=== PATIENT | male | born 2000 | race Hispanic/Latino ===

== ENCOUNTER 2025-06-18 11:50 | Emergency (ER) | payer BC ==
[~2025-06-18] VITALS: Ht 167.6 cm; Wt 81.6 kg
--- NOTE | 2025-06-18 12:00 | ERN ---
ED Note History of Present Illness Stated Complaint: N/V/D, GENERALIZED [place]ING[place] Chief Complaint: Nausea,Vomiting,Diarrhea Time Seen by MD: 11:57 Dictation: PATIENT IS A 24-YEAR-OLD MALE COMING IN TODAY WITH COMPLAINTS OF NAUSEA VOMITING AND GENERALIZED BODY TINGLING ONSET WAS 0 100 THIS MORNING. HE HAS HAD NO FEVER NO CHILLS NO DIARRHEA. HE DENIES ANY ABDOMINAL PAIN AT THIS TIME. STATES HE THOUGHT HE WAS GETTING SICK YESTERDAY AND THEN IT HIT HIM AT 01:00 IN THE MORNING. NO PRIMARY CARE DOCTOR HE HAS NOT TAKEN ANYTHING PRIOR TO ARRIVAL FOR THE VOMITING. STATES HE DOES SMOKE MARIJUANA. Allergies: Coded Allergies: Penicillins (Unverified Allergy, Unknown, 06/18/25) Past Medical History Past Medical History: Asthma Surgical History: None Social History: Drugs RN Note Reviewed/Agreed w/PFSH: Yes Review of System Dictation CONSTITUTIONAL: NEGATIVE EXCEPT FOR HPI HEAD/FACE: NEGATIVE EXCEPT FOR HPI EENT: NEGATIVE EXCEPT FOR HPI RESPIRATORY: NEGATIVE EXCEPT FOR HPI GASTROINTESTINAL/ABDOMINAL: NEGATIVE EXCEPT FOR HPI NAUSEA VOMITING GENITOURINARY: NEGATIVE EXCEPT FOR HPI MUSCULOSKELETAL: NEGATIVE EXCEPT FOR HPI INTEGUMENTARY: NEGATIVE EXCEPT FOR HPI NEUROLOGICAL/PSYCH: NEGATIVE EXCEPT FOR HPI [place] HEMATOLOGIC/LYMPHATIC: NEGATIVE EXCEPT FOR HPI ALL SYSTEMS NEGATIVE, EXCEPT NOTED ABOVE. 13 POINT REVIEW OF SYSTEMS ASSESSED AND ALL NEGATIVE EXCEPT FOR ABOVE. Initial Vital Sign VS Vital Signs Date Time Temp Pulse Resp B/P (MAP) Pulse Ox O2 Delivery O2 Flow Rate FiO2 06/18/25 11:54 98.2 97 16 189/63 100 Room Air 0 06/18/25 13:21 21 Physical Exam Dictation VITAL SIGNS REVIEWED GENERAL APPEARANCE: ALERT, ORIENTED X 3, NO ACUTE DISTRESS, WELL DEVELOPED, NOU RISHED. HEAD AND FACE: NON-TRAUMATIC. EYES: PERRL, PINK CONJUNCTIVAS, EYELID NO TRAUMA, ANTERIOR CHAMBER WITH ARCUS SENILIS. EARS: PINNAS INTACT AND NO SIGNS OF TRAUMA OR ERYTHEMA EAR CANALS CLEAR AND NO DISCHARGE TM NO ERYTHEMA NOSE: NO DISCHARGE, NO BLEEDING. OROPHARYNX: MOUTH NORMAL, TONGUE PINK, PHARYNX CLEAR,NO ERYTHEMA, TONSILS NO EXUDATES, NO ABSCESSES NOTED, MUCOUS ME MBRANE MOIST NECK: SUPPLE, NON-TENDER, NO THYROMEGALY, NO MASSES, NO JVD, NO BRUITS BREAST:DEFERRED CHEST:NO TENDERNESS, NO CREPITUS, NO PARADOXICAL MOVEMENT, NO RETRACTIONS LUNGS:CLEAR, WELL-VENTILATED, SYMMETRIC, NO RALES, NO WHEEZING, NO RHONCHI, NO STRIDOR, GOOD BREATH SOUNDS BILATERALLY HEART: REGULAR RATE, REGULAR RHYTHM, NO MURMUR, NO GALLOPS VASCULAR: NO PERIPHERAL EDEMA, ABDOMEN: SOFT, POSITIVE BOWEL SOUNDS, NONDISTENDED, NO GUARDING, NONTENDER, NO REBOUND, NO MASSES NO HEPATOMEGALY, NO SPLENOMEGALY, NO HALL'S SIGN, NO HERNIAS. NO FOCAL PAIN RECTAL: DEFERRED GENITAL: DEFERRED NEUROLOGICAL: NORMAL SPEECH, MOTOR FUNCTION INTACT, SENSORY FUNCTION INTACT MUSCULOSKELETAL: NECK NONTENDER, FULL RANGE OF MOTION, BACK NONTENDER, FULL RANGE OF MOTION, EXTREMITIES: NONTENDER, FULL RANGE OF MOTION SKIN: COLOR PINK, DRY, NO TURGOR, NO RASH, NO LACERATIONS, NO ABRASIONS, NO CONTUSIONS. LYMPHATIC: DEFERRED Results (Laboratory/Radiology) Laboratory/Radiology Laboratory Tests Test 06/18/25 12:48 06/18/25 13:25 White Blood Count 14.9 K/uL (4.8-10.8) H Red Blood Count 5.19 MIL/uL (4.50-6.20) Hemoglobin 15.5 g/dL (14.0-18.0) Hematocrit 44.0 % (42-54) Mean Corpuscular Volume 84.8 fL (79-99) Mean Corpuscular Hemoglobin 29.9 pg (27.0-33.0) Mean Corpuscular Hemoglobin Concent 35.2 g/dL (32.0-36.0) Red Cell Distribution Width 11.7 % (11.0-15.5) Platelet Count 338 K/uL (130-400) Mean Platelet Volume 10.2 fL (7.5-10.5) Immature Granulocyte % (Auto) 0.4 % (0-1) Neutrophils (%) (Auto) 91.1 % (40.0-77.0) H Lymphocytes (%) (Auto) 4.7 % (21.0-51.0) L Monocytes (%) (Auto) 3.7 % (3.0-13.0) Eosinophils (%) (Auto) 0.0 % (0.0-8.0) Basophils (%) (Auto) 0.1 % (0.0-5.0) Neutrophils # (Auto) 13.5 K/uL (1.8-7.7) H Lymphocytes # (Auto) 0.7 K/uL (1.0-4.8) L Monocytes # (Auto) 0.6 K/uL (0.1-1.0) Eosinophils # (Auto) 0.00 K/uL (0.00-0.70) Basophils # (Auto) 0.02 K/uL (0.00-0.20) Absolute Immature Granulocyte (auto 0.06 K/uL (0-1) Nucleated Red Blood Cells 0.0 % (0.0-0.19) White Cell Morphology Comment See comments Sodium Level 137 mmol/L (136-145) Potassium Level 3.2 mmol/L (3.5-5.1) L Chloride Level 100 mmol/L (101-111) L Carbon Dioxide Level 28 mmol/L (21-32) Blood Urea Nitrogen 9 mg/dL (7-18) Creatinine 1.0 mg/dL (0.5-1.3) Glomerular Filtration Rate Calc 106 mL/min (>90) Random Glucose 132 mg/dL (70-105) H Total Calcium 9.7 mg/dL (8.5-10.1) Lipase 20 U/L (16-77) Urine Color YELLOW (YELLOW) Urine Appearance CLEAR (CLEAR) Urine pH 6.5 (5.0-8.0) Urine Specific [place] 1.037 (1.001-1.031) Urine Protein 50 mg/dL (NEGATIVE) H Urine Glucose (UA) 70 mg/dL (NEGATIVE) H Urine Ketones 150 mg/dL (NEGATIVE) H Urine Occult Blood NEGATIVE (NEGATIVE) Urine Nitrate NEGATIVE (NEGATIVE) Urine Bilirubin NEGATIVE mg/dL (NEGATIVE) Urine Urobilinogen 0.2 mg/dL (0.2-1.0) Urine Leukocyte Esterase NEGATIVE Ivania/uL Urine RBC 2-5 /HPF (0-1) H Urine WBC 2-5 /HPF (0-1) H Urine Squamous Epithelial Cells RARE /HPF (0-2) Urine Bacteria RARE /HPF (None Seen) Urine Opiates Screen NEGATIVE (NEGATIVE) Urine Barbiturates Screen NEGATIVE (NEGATIVE) Urine Phencyclidine Screen NEGATIVE (NEGATIVE) Urine Amphetamines Screen NEGATIVE (NEGATIVE) Urine Benzodiazepines Screen NEGATIVE (NEGATIVE) Urine Cocaine Screen NEGATIVE (NEGATIVE) Urine Marijuana (THC) Screen POSITIVE (NEGATIVE) H Labs Reviewed?: Yes ED Course ED Course Orders Procedure Category Date Status Time Drug Screen Urine LAB 06/18/25 Complete 11:58 Cbc With Differential LAB 06/18/25 Complete 11:58 Urinalysis Profile LAB 06/18/25 Complete 11:58 0.9%Nacl 1000ml (Ns PHA 06/18/25 Complete 1000ml) 12:00 Ondansetron 4mg Inj PHA 06/18/25 Complete (Zofran 4mg Inj) 12:00 Famotidine 20mg Vial PHA 06/18/25 Complete (Pepcid 20mg Vial) 12:00 Lipase LAB 06/18/25 Complete 11:58 Basic Metabolic Panel LAB 06/18/25 Complete 11:58 Current Medications Medications (Trade) Dose Ordered Sig/Gia Route PRN Reason Start Time Stop Time Status Last Admin Dose Admin Famotidine (Pepcid 20mg Vial) 20 mg ONCE ONCE IV 06/18/25 12:00 06/18/25 12:01 DC 06/18/25 13:37 Ondansetron HCl (zoFRAN 4MG INJ) 4 mg ONCE ONCE IVP 06/18/25 12:00 06/18/25 12:01 DC 06/18/25 13:36 Sodium Chloride 1,000 ml @ 0 mls/hr ONCE ONCE IV 06/18/25 12:00 06/18/25 12:01 DC 06/18/25 13:36 Vital Signs Date Time Temp Pulse Resp B/P (MAP) Pulse Ox O2 Delivery O2 Flow Rate FiO2 06/18/25 13:21 98.2 82 18 162/60 100 Room Air* 0 21 06/18/25 11:54 98.2 97 16 189/63 100 Room Air 0 1320/PATIENT STATES HE FEELS MARKEDLY IMPROVED AFTER TREATMENT WITH FLUIDS AND ZOFRAN. STATES HIS LAST CANNABIS INTAKE WAS TWO DAYS AGO. HE STATES WAS IN THE SHOWER YESTERDAY FOR HOURS TIME TO STOP VOMITING. I STRONGLY ADVISED HIM TO STOP CANNABIS Medical Decision Making MDM MDM: DIFFERENTIAL DIAGNOSIS: NAUSEA VOMITING/GASTROENTERITIS/CANNABIS ABUSE SYNDROME/POLYDRUG ABUSE/ELECTROLYTE IMBALANCE/DEHYDRATION RATIONALE: TESTS CONSIDERED AND ORDERED SECONDARY TO SHARED DECISION MAKING INCLUDE: LABS PREVIOUS OUTSIDE RECORDS REVIEWED: OLD ER VISITS. RISK OF COMPLICATION AND/OR MORBIDITY OR MORTALITY OF PATIENT MANAGEMENT: NONE MEDICATIONS-PER MEDICATION RECONCILIATION NEED FOR HOSPITALIZATION: PATIENT DOES NOT MEET CRITERIA FOR HOSPITALIZATION. NONE NEED FOR EMERGENCY MAJOR/MINOR SURGERY: NO THERE ARE NO SOCIAL CONCERNS WITH THIS PATIENT. CANNABIS ABUSE PRESCRIPTION DRUG MANAGEMENT ZOFRAN/K-DUR PRESCRIPTIONS WILL INCLUDE SYMPTOMATIC CARE PATIENT'S PRIOR EXTERNAL MEDICAL RECORDS FROM OTHER ER VISITS WERE REVIEWED BY ME INDICATED. PRIOR TESTING AND RESULTS FROM PREVIOUS VISITS WERE REVIEWED. PRIOR TESTS WERE TAKEN INTO ACCOUNT WITH MEDICAL DECISION MAKING AND RESOURCE UTILIZATION, INDEPENDENT HISTORIAN/HISTORIANS WERE USED TO OBTAIN COMPLETE MEDICAL HISTORY. I INDEPENDENTLY INTERPRETED THE TEST THAT WERE PERFORMED, RESULTS WERE REVIEWED BY ME AND CONSIDERED FINDINGS ON RADIOLOGY IF ORDERED. MEDICAL MANAGEMENT AND EXAMINATION INTERPRETATION DISCUSSIONS WERE HAD BY ME WITH OTHER QUALIFIED HEALTHCARE PROFESSIONALS INDICATED FOR THE PATIENT'S CARE. DX & DISP Disposition: Discharge Departure Impression: Primary Impression: Cannabis hyperemesis syndrome concurrent with and due to cannabis abuse Additional Impressions: Hypokalemia, Dehydration Condition: Stable Scripts Potassium Chloride (Potassium Chloride) 20 Meq Tab.er.prt 1 TAB PO DAILY for 5 Days, #5 TAB 0 Refills Prov: LAURYN WADE CAD DETAILER 06/18/25 Ondansetron (Ondansetron Odt) 4 Mg Tab.rapdis 4 MG PO Q6HPRN PRN for nausea, #16 TAB 0 Refills Prov: LAURYN WADE CAD DETAILER 06/18/25 Additional Instructions: FOLLOW-UP WITH PRIMARY CARE PROVIDER IN 1 TO 2 DAYS. TAKE MEDICATIONS DIRECT ED HERE IN THE EMERGENCY ROOM. OKAY TO CONTINUE HOME MEDICATIONS UNLESS OTHERWISE DISCUSSED DURING YOUR VISIT IN THE EMERGENCY ROOM TODAY. RETURN TO YOUR NEAREST EMERGENCY ROOM IF SYMPTOMS WORSEN OR IF THERE IS NO IMPROVEMENT. CALL 911 IF YOU NEED IMMEDIATE ASSISTANCE. TAKE TYLENOL OR MOTRIN [id number] NEEDED AND IF NO CONTRAINDICATIONS ARE PRESENT. INCREASE ORAL HYDRATION. A WOUND CULTURE OR URINE CULTURE WAS ORDERED HERE IN THE EMERGENCY ROOM DEPARTMENT PLEASE FOLLOW-UP WITH PRIMARY CARE PROVIDER AND ADVISE THEM TO GET REPEAT PORTS FROM OUR FACILITY. IF YOU HAD ANY GURJIT WRAP/SPLINTS THAT WERE APPLIED HERE, PLEASE DO NOT REMOVE THEM UNTIL YOU SEE YOUR PRIMARY CARE OR SPECIALTY. STOP MARIJUANA USE. TAKE HOT SHOWERS WHEN YOU START VOMITING. TAKE POTASSIUM REPLACEMENT DIRECTED DAILY UNTIL GONE. FOLLOW UP WITH ONE OF THE DOCTORS ON THE LIST PROVIDED YOU NEEDED. Referrals: CONNIE MARIN (PCP) Time of Disposition: 14:23 I have reviewed the case, and I agree with, Diagnosis and Plan LAURYN WADE CAD DETAILER Jun 18, 2025 12:00
[2025-06-18 13:14] LABS: IMMATURE GRANULOCYTE ABSOLUTE 0.06 K/uL (0-1); NUCLEATED RED BLOOD CELLS 0.0 % (0.0-0.19); PLATELET COUNT (AUTO) 338 K/uL (130-400); RED BLOOD CELL COUNT(AUTO) 5.19 MIL/uL (4.50-6.20); RED CELL DISTRIBUTION WIDTH 11.7 % (11.0-15.5); WHITE BLOOD COUNT (AUTO) 14.9 K/uL (4.8-10.8)
[2025-06-18 13:19] LABS: CREATININE 1.0 mg/dL (0.5-1.3); GLOMERULAR FILTR. RATE CALC 106.0 mL/min (>90); GLUCOSE,RANDOM 132.0 mg/dL (70-105); SODIUM SERUM 137.0 mmol/L (136-145); UREA NITROGEN, BLOOD 9.0 mg/dL (7-18)
[2025-06-18] MEDS: 0.9%NACL 1000ML 1,000 ML IV ONE (13:36)
[2025-06-18] MEDS: FAMOTIDINE 20MG VIAL IV ONE (13:37)
[2025-06-18 13:38] LABS: APPEARANCE,URINE CLEAR (CLEAR); GLUCOSE, URINE (UA) 70 mg/dL (NEGATIVE); LEUKOCYTE ESTERASE ,URINE NEGATIVE Leu/uL (NEGATIVE); NITRATE,URINE NEGATIVE (NEGATIVE); OCCULT BLOOD,URINE NEGATIVE (NEGATIVE)
[2025-06-18 13:43] LABS: ADD UA MICROSCOPIC YES
[2025-06-18 13:44] LABS: AMPHET/METH SCREEN,URINE NEGATIVE (NEGATIVE); BARBITURATE SCREEN, URINE NEGATIVE (NEGATIVE); CANNABINOID SCREEN,URINE POSITIVE (NEGATIVE); COCAINE SCREEN,URINE NEGATIVE (NEGATIVE)
[2025-06-18 13:50] LABS: SQUAMOUS EPITHELIAL CELL,UR RARE /HPF (0-2)
[2025-06-18] MEDS ORDERED: ONDA-243 PO (14:26)
[2025-06-18] MEDS ORDERED: POTA-202 PO (14:26)
[2025-06-18 14:43] VITALS: BP 162/60; PULSE 82; RESP 18; TEMP 98.2; O2SAT 100
[2025-06-19] MEDS ORDERED: OMEP40CA21 PO (17:54)
== END 2025-06-18 14:44 | disposition home or self-care (01) ==
LOC: EDH 11:50
DX: F12.10 Cannabis abuse, uncomplicated (principal); E87.6 Hypokalemia; E86.0 Dehydration; R11.10 Vomiting, unspecified; J45.909 Unspecified asthma, uncomplicated; Z88.0 Allergy status to penicillin
CPT/HCPCS: 99284; 96374; 96375; 80048; 80305; 83690; 85025; 81001; 36415; J3490; J7030; J2405

== ENCOUNTER 2025-06-19 14:10 | Emergency (ER) | payer BC ==
[~2025-06-19] VITALS: Ht 167.6 cm; Wt 81.6 kg
[~2025-06-19 14:10] MED LIST: ONDA-243 PO; POTA-202 PO
--- NOTE | 2025-06-19 14:23 | ERN ---
ED Note History of Present Illness Stated Complaint: NAUSEA AND VOMITING Chief Complaint: Nausea,Vomiting,Diarrhea Time Seen by MD: 14:14 Dictation: PATIENT IS A 24-YEAR-OLD MALE COMING IN TODAY WITH INTERMITTENT EPIGASTRIC PAIN WITH NAUSEA VOMITING ONSET TWO DAYS AGO. NO FEVER NO CHILLS NO CHEST PAIN NO BACK PAIN. HE WAS HERE LAST NIGHT AT [facility] FOR THE SAME COMPLAINT WAS DIAGNOSED WITH CANNABIS ABUSE SYNDROME. VOMITING WAS STOPPED AFTER FLUIDS AND ZOFRAN. STATES HE GOT OUT AND TRIED TO EAT A SANDWICH AND 8 ML STARTED VOMITING IN. HE STATES HE TOOK HIS ONDANSETRON AFTER BEGINNING THE PRESCRIPTION FILLED YESTERDAY AND THEN THIS MORNING FELT GOOD, SO HE ATE RAMEN NOODLES AND THEN STARTED Allergies: Coded Allergies: Penicillins (Unverified Allergy, Unknown, 06/18/25) Home Meds Active Scripts Potassium Chloride (Potassium Chloride) 20 Meq Tab.er.prt, 1 TAB PO DAILY for 5 Days, #5 TAB 0 Refills Prov:LAURYN WADE USABILITY STRATEGIST 06/18/25 Ondansetron (Ondansetron Odt) 4 Mg Tab.rapdis, 4 MG PO Q6HPRN PRN for nausea, #16 TAB 0 Refills Prov:LAURYN WADE USABILITY STRATEGIST 06/18/25 Past Medical History Past Medical History: Asthma Surgical History: None Social History: Drugs RN Note Reviewed/Agreed w/PFSH: Yes Review of System Dictation CONSTITUTIONAL: NEGATIVE EXCEPT FOR HPI HEAD/FACE: NEGATIVE EXCEPT FOR HPI EENT: NEGATIVE EXCEPT FOR HPI RESPIRATORY: NEGATIVE EXCEPT FOR HPI GASTROINTESTINAL/ABDOMINAL: NEGATIVE EXCEPT FOR HPI NAUSEA VOMITING/EPIGASTRIC PAIN GENITOURINARY: NEGATIVE EXCEPT FOR HPI MUSCULOSKELETAL: NEGATIVE EXCEPT FOR HPI INTEGUMENTARY: NEGATIVE EXCEPT FOR HPI NEUROLOGICAL/PSYCH: NEGATIVE EXCEPT FOR HPI HEMATOLOGIC/LYMPHATIC: NEGATIVE EXCEPT FOR HPI ALL SYSTEMS NEGATIVE, EXCEPT NOTED ABOVE. 13 POINT REVIEW OF SYSTEMS ASSESSED AND ALL NEGATIVE EXCEPT FOR ABOVE. Initial Vital Sign VS Vital Signs Date Time Temp Pulse Resp B/P (MAP) Pulse Ox O2 Delivery O2 Flow Rate FiO2 06/19/25 14:11 98.2 84 18 138/70 96 Room Air 06/19/25 16:17 0 21 Physical Exam Dictation VITAL SIGNS REVIEWED GENERAL APPEARANCE: ALERT, ORIENTED X 3, MODERATE ACUTE DISTRESS, WELL DEVELOPED, NOURISHED. HEAD AND FACE: NON-TRAUMATIC. EYES: PERRL, PINK CONJUNCTIVAS, EYELID NO TRAUMA, ANTERIOR CHAMBER WITH ARCUS SENILIS. EARS: PINNAS INTACT AND NO SIGNS OF TRAUMA OR ERYTHEMA EAR CANALS CLEAR AND NO DISCHARGE TM NO ERYTHEMA NOSE: NO DISCHARGE, NO BLEEDING. OROPHARYNX: MOUTH NORMAL, TONGUE PINK, PHARYNX CLEAR,NO ERYTHEMA, TONSILS NO EXUDATES, NO ABSCESSES NOTED, MUCOUS MEMBRANE MOIST NECK: SUPPLE, NON-TENDER, NO THYROMEGALY, NO MASSES, NO JVD, NO BRUITS BREAST:DEFERRED CHEST:NO TENDERNESS, NO CREPITUS, NO PARADOXICAL MOVEMENT, NO RETRACTIONS LUNGS:CLEAR, WELL-VENTILATED, SYMMETRIC, NO RALES, NO WHEEZING, NO RHONCHI, NO STRIDOR, GOOD BREATH SOUNDS BILATERALLY HEART: REGULAR RATE, REGULAR RHYTHM, NO MURMUR, NO GALLOPS VASCULAR: NO PERIPHERAL EDEMA, ABDOMEN: SOFT, POSITIVE BOWEL SOUNDS, NONDISTENDED, NO GUARDING, MODERATE EPIGASTRIC TENDERNESS, NO REBOUND, NO MASSES NO HEPATOMEGALY, NO SPL ENOMEGALY, NO HALL'S SIGN, NO HERNIAS. RECTAL: DEFERRED GENITAL: DEFERRED NEUROLOGICAL: NORMAL SPEECH, MOTOR FUNCTION INTACT, SENSORY FUNCTION INTACT MUSCULOSKELETAL: NECK NONTENDER, FULL RANGE OF MOTION, BACK NONTENDER, FULL RANGE OF MOTION, EXTREMITIES: NONTENDER, FULL RANGE OF MOTION SKIN: COLOR PINK, DRY, NO TURGOR, NO RASH, NO LACERATIONS, NO ABRASIONS, NO CONTUSIONS. LYMPHATIC: DEFERRED Results (Laboratory/Radiology) Laboratory/Radiology Laboratory Tests Test 06/19/25 14:28 06/19/25 16:30 White Blood Count 13.5 K/uL (4.8-10.8) H Red Blood Count 5.09 MIL/uL (4.50-6.20) Hemoglobin 15.2 g/dL (14.0-18.0) Hematocrit 43.7 % (42-54) Mean Corpuscular Volume 85.9 fL (79-99) Mean Corpuscular Hemoglobin 29.9 pg (27.0-33.0) Mean Corpuscular Hemoglobin Concent 34.8 g/dL (32.0-36.0) Red Cell Distribution Width 11.7 % (11.0-15.5) Platelet Count 337 K/uL (130-400) Mean Platelet Volume 9.7 fL (7.5-10.5) Immature Granulocyte % (Auto) 0.3 % (0-1) Neutrophils (%) (Auto) 77.5 % (40.0-77.0) H Lymphocytes (%) (Auto) 15.2 % (21.0-51.0) L Monocytes (%) (Auto) 6.5 % (3.0-13.0) Eosinophils (%) (Auto) 0.2 % (0.0-8.0) Basophils (%) (Auto) 0.3 % (0.0-5.0) Neutrophils # (Auto) 10.4 K/uL (1.8-7.7) H Lymphocytes # (Auto) 2.0 K/uL (1.0-4.8) Monocytes # (Auto) 0.9 K/uL (0.1-1.0) Eosinophils # (Auto) 0.03 K/uL (0.00-0.70) Basophils # (Auto) 0.04 K/uL (0.00-0.20) Absolute Immature Granulocyte (auto 0.04 K/uL (0-1) Nucleated Red Blood Cells 0.0 % (0.0-0.19) Sodium Level 140 mmol/L (136-145) Potassium Level 3.1 mmol/L (3.5-5.1) L Chloride Level 104 mmol/L (101-111) Carbon Dioxide Level 24 mmol/L (21-32) Blood Urea Nitrogen 8 mg/dL (7-18) Creatinine 1.0 mg/dL (0.5-1.3) Glomerular Filtration Rate Calc 106 mL/min (>90) Random Glucose 118 mg/dL (70-105) H Total Calcium 9.3 mg/dL (8.5-10.1) Total Bilirubin 0.9 mg/dL (0.2-1.0) Aspartate Amino Transf (AST/SGOT) 30 U/L (10-37) Alanine Aminotransferase (ALT/SGPT) 39 U/L (12-78) Alkaline Phosphatase 84 U/L (50-136) Troponin I High Sensitivity 7 ng/L (4-75) Total Protein 7.3 g/dL (6.0-8.3) Albumin 4.2 g/dL (3.5-5.0) Lipase 25 U/L (16-77) Urine Color YELLOW (YELLOW) Urine Appearance CLOUDY (CLEAR) H Urine pH 6.5 (5.0-8.0) Urine Specific [place] 1.034 (1.001-1.031) Urine Protein 50 mg/dL (NEGATIVE) H Urine Glucose (UA) NEGATIVE mg/dL (NEGATIVE) Urine Ketones 100 mg/dL (NEGATIVE) H Urine Occult Blood NEGATIVE (NEGATIVE) Urine Nitrate NEGATIVE (NEGATIVE) Urine Bilirubin NEGATIVE mg/dL (NEGATIVE) Urine Urobilinogen 0.2 mg/dL (0.2-1.0) Urine Leukocyte Esterase NEGATIVE Ivania/uL Urine RBC 2-5 /HPF (0-1) H Urine WBC 6-10 /HPF (0-1) H Urine Squamous Epithelial Cells RARE /HPF (0-2) Urine Bacteria None /HPF (None Seen) Urine Yeast RARE /HPF (None Seen) Labs Reviewed?: Yes EKG Comment: EKG SINUS RHYTHM/HEART RATE 74/AXIS NORMAL/EARLY REPOLARIZATION SEEN IN V2 345 ED Course ED Course Orders Procedure Category Date Status Time Cbc With Differential LAB 06/19/25 Complete 14:19 Comprehensive LAB 06/19/25 Complete Metabolic Panel 14:19 Troponin I High LAB 06/19/25 Complete Sensitivity 14:19 Urinalysis Profile LAB 06/19/25 Complete 14:19 12 Lead Ekg Tracing- EKG 06/19/25 Complete Technical 14:19 0.9%Nacl 1000ml (Ns PHA 06/19/25 Complete 1000ml) 14:30 Ondansetron 4mg Inj PHA 06/19/25 Complete (Zofran 4mg Inj) 14:30 Famotidine 20mg Vial PHA 06/19/25 Complete (Pepcid 20mg Vial) 14:30 Lipase LAB 06/19/25 Complete 14:19 Potassium Bicarb/Cit PHA 06/19/25 Complete Ac 25meq (K-Lyte Ta 15:00 Culture Urine IZZY 06/19/25 In Process 16:50 Metoclopramide 10 PHA 06/19/25 Complete Mg/2 Ml Vial (Reglan 1 17:30 Current Medications Medications (Trade) Dose Ordered Sig/Gia Route PRN Reason Start Time Stop Time Status Last Admin Dose Admin Famotidine (Pepcid 20mg Vial) 20 mg ONCE ONCE IV 06/19/25 14:30 06/19/25 14:31 DC 06/19/25 16:51 Metoclopramide HCl (regLAN 10MG IV) 10 mg ONCE ONCE IVP 06/19/25 17:30 06/19/25 17:31 DC 06/19/25 17:23 Ondansetron HCl (zoFRAN 4MG INJ) 4 mg ONCE ONCE IVP 06/19/25 14:30 06/19/25 14:31 DC 06/19/25 16:51 Potassium Bicarbonate (K-Lyte Tablet Eff 25 Meq Tablet.eff) 25 meq ONCE ONCE PO 06/19/25 15:00 06/19/25 15:01 DC 06/19/25 16:50 Sodium Chloride 1,000 ml @ 0 mls/hr ONCE ONCE IV 06/19/25 14:30 06/19/25 14:31 DC 06/19/25 16:50 Vital Signs Date Time Temp Pulse Resp B/P (MAP) Pulse Ox O2 Delivery O2 Flow Rate FiO2 06/19/25 16:17 98.2 84 18 138/70 96 Room Air* 0 21 06/19/25 14:11 98.2 84 18 138/70 96 Room Air 1750/PATIENT FEELS MARKEDLY IMPROVED AFTER FLUIDS ZOFRAN AND POTASSIUM WITH REGLAN. HE WAS DISCHARGED HOME WITH STRICT INSTRUCTIONS TO CLEAR LIQUID DIET ONLY FOR THE NEXT 24 HOURS TO INCLUDE GATORADE OR POWERADE. NO SOLID FOODS UNTIL TOMORROW AND THEN ADVANCE SLOWLY. NO DRUG ABUSE TO INCLUDE MARIJUANA Medical Decision Making MDM MDM: DIFFERENTIAL DIAGNOSIS: ACS/AMI/ELECTROLYTE IMBALANCE/DEHYDRATION/CANNABIS ABUSE RATIONALE: TESTS CONSIDERED AND ORDERED SECONDARY TO SHARED DECISION MAKING INCLUDE: EKG/LABS PREVIOUS OUTSIDE RECORDS REVIEWED: OLD ER VISITS. RISK OF COMPLICATION AND/OR MORBIDITY OR MORTALITY OF PATIENT MANAGEMENT: NONE MEDICATIONS-PER MEDICATION RECONCILIATION NEED FOR HOSPITALIZATION: PATIENT DOES NOT MEET CRITERIA FOR HOSPITALIZATION. NO NEED FOR EMERGENCY MAJOR/MINOR SURGERY: NO THERE ARE NO SOCIAL CONCERNS WITH THIS PATIENT. PRESCRIPTION DRUG MANAGEMENT ZOFRAN/OMEPRAZOLE PRESCRIPTIONS WILL INCLUDE SYMPTOMATIC CARE PATIENT'S PRIOR EXTERNAL MEDICAL RECORDS FROM OTHER ER VISITS WERE REVIEWED BY ME INDICATED. PRIOR TESTING AND RESULTS FROM PREVIOUS VISITS WERE REVIEWED. PRIOR TESTS WERE TAKEN INTO ACCOUNT WITH MEDICAL DECISION MAKING AND RESOURCE UTILIZATION, INDEPENDENT HISTORIAN/HISTORIANS WERE USED TO OBTAIN COMPLETE MEDICAL HISTORY. I INDEPENDENTLY INTERPRETED THE TEST THAT WERE PERFORMED, RESULTS WERE REVIEWED BY ME AND CONSIDERED FINDINGS ON RADIOLOGY IF ORDERED. MEDICAL MANAGEMENT AND EXAMINATION INTERPRETATION DISCUSSIONS WERE HAD BY ME WITH OTHER QUALIFIED HEALTHCARE PROFESSIONALS INDICATED FOR THE PATIENT'S CARE. DX & DISP Disposition: Discharge Departure Impression: Primary Impression: Cannabis hyperemesis syndrome concurrent with and due to cannabis abuse Additional Impressions: Hypokalemia, Dehydration Condition: Stable Scripts Omeprazole (Omeprazole) 40 Mg Capsule.dr 1 CAP PO DAILY for 30 Days, #30 CAP 0 Refills Prov: LAURYN WADE USABILITY STRATEGIST 06/19/25 Additional Instructions: FOLLOW-UP WITH PRIMARY CARE PROVIDER IN 1 TO 2 DAYS. TAKE MEDICATIONS DIRECTED HERE IN THE EMERGENCY ROOM. OKAY TO CONTINUE HOME MEDICATIONS UNLESS OTHERWISE DISCUSSED DURING YOUR VISIT IN THE EMERGENCY ROOM TODAY. RETURN TO YOUR NEAREST EMERGENCY ROOM IF SYMPTOMS WORSEN OR IF THERE IS NO IMPROVEMENT. CALL 911 IF YOU NEED IMMEDIATE ASSISTANCE. TAKE TYLENOL OR MOTRIN [id number] NEEDED AND IF NO CONTRAINDICATIONS ARE PRESENT. INCREASE ORAL HYDRATION. A WOUND CULTURE OR URINE CULTURE WAS ORDERED HERE IN THE EMERGENCY ROOM DEPARTMENT PLEASE FOLLOW-UP WITH PRIMARY CARE PROVIDER AND ADVISE THEM TO GET REPEAT PORTS FROM OUR FACILITY. IF YOU HAD ANY GURJIT WRAP/SPLINTS THAT WERE APPLIED HERE, PLEASE DO NOT REMOVE THEM UNTIL YOU SEE YOUR PRIMARY CARE OR SPECIALTY. CONTINUE ZOFRAN AT HOME FROM YOUR VISIT LAST NIGHT TO THE EMERGENCY ROOM. TAKE OMEPRAZOLE DIRECTED FOR THE NEXT 14 DAYS DAILY.. CLEAR LIQUID DIET ONLY FOR THE NEXT 18 HOURS TO INCLUDE GATORADE OR POWERADE. NO SOLID FOODS UNTIL WEDNESDAY AFTERNOON AND MAY ADVANCE YOUR DIET SLOWLY THEN TO REGULAR Referrals: SELF,REFERRAL (PCP) Time of Disposition: 17:54 I have reviewed the case, and I agree with, Diagnosis and Plan LAURYN WADE NP Jun 19, 2025 14:23
--- NOTE | 2025-06-19 14:32 | EKG ---
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
[2025-06-19 14:42] LABS: IMMATURE GRANULOCYTE ABSOLUTE 0.04 K/uL (0-1); NUCLEATED RED BLOOD CELLS 0.0 % (0.0-0.19); PLATELET COUNT (AUTO) 337 K/uL (130-400); RED BLOOD CELL COUNT(AUTO) 5.09 MIL/uL (4.50-6.20); RED CELL DISTRIBUTION WIDTH 11.7 % (11.0-15.5); WHITE BLOOD COUNT (AUTO) 13.5 K/uL (4.8-10.8)
[2025-06-19 14:52] LABS: ASPARTATE AMINOTRANSFERASE 30.0 U/L (10-37); CREATININE 1.0 mg/dL (0.5-1.3); GLOMERULAR FILTR. RATE CALC 106.0 mL/min (>90); GLUCOSE,RANDOM 118.0 mg/dL (70-105); SODIUM SERUM 140.0 mmol/L (136-145); TOTAL PROTEIN, SERUM 7.3 g/dL (6.0-8.3); UREA NITROGEN, BLOOD 8.0 mg/dL (7-18)
[2025-06-19 16:44] LABS: APPEARANCE,URINE CLOUDY (CLEAR); GLUCOSE, URINE (UA) NEGATIVE (NEGATIVE); LEUKOCYTE ESTERASE ,URINE NEGATIVE Leu/uL (NEGATIVE); NITRATE,URINE NEGATIVE (NEGATIVE); OCCULT BLOOD,URINE NEGATIVE (NEGATIVE)
[2025-06-19 16:47] LABS: ADD UA MICROSCOPIC YES
[2025-06-19 16:50] LABS: SQUAMOUS EPITHELIAL CELL,UR RARE /HPF (0-2); YEAST,URINE BUDDING RARE /HPF (None Seen)
[2025-06-19] MEDS: 0.9%NACL 1000ML 1,000 ML IV ONE (16:50)
[2025-06-19] MEDS: FAMOTIDINE 20MG VIAL IV ONE (16:51)
[2025-06-19] MEDS ORDERED: OMEP40CA21 PO (17:54)
[2025-06-19 18:04] VITALS: BP 127/72; PULSE 81; RESP 18; TEMP 98.2; O2SAT 96
== END 2025-06-19 18:06 | disposition home or self-care (01) ==
LOC: EEVIPCON 14:10 → EDH 14:10
DX: E87.6 Hypokalemia (principal); E86.0 Dehydration; R11.10 Vomiting, unspecified; F12.10 Cannabis abuse, uncomplicated; J45.909 Unspecified asthma, uncomplicated; Z79.899 Other long term (current) drug therapy; Z88.0 Allergy status to penicillin
CPT/HCPCS: 99284; 96374; 96375; 84484; 80053; 83690; 85025; 87086; 81001; 36415; 93005; J3490; J7030; J2405; J2765